=== PATIENT | female | born 1980 | race Caucasian/White ===

== ENCOUNTER → 2017-01-26 | Outpatient (CLI) | payer BC ==
[~2017-01-26] MED LIST: GADOBUTROL 15 MMOL/15 ML (GADAVIST) VIAL IV ONE; LEVO1TAB PO; MTF500T PO; OMEP40CA36 PO; SPRN25T PO
--- NOTE | 2017-01-26 12:20 | Diagnostic Imaging Report ---
EXAMINATION: Multiplanar multisequence MRI of the brain and the pituitary performed with and without intravenous contrast. INDICATION: History of pituitary adenoma. Severe headache. The patient has had episodes of lip, tongue, and right hand numbness two weeks ago. CONTRAST: 7 mL of Gadavist is administered intravenously. COMPARISON: 01/15/2016. FINDINGS: There is no diffusion restriction to suggest an acute infarct or other diffusion abnormality. A minimal nonspecific 3 mm T2 hyperintense lesion in the subcortical white matter along the right frontal lesion, axial image 17 is seen. This is a nonspecific finding and could relate to tiny focus of gliosis from an old insult. When correlated with the previous exam it appears to be present although it is slightly more prominent than the current study. Otherwise, the brain parenchyma demonstrates no significant olivera or white matter signal abnormality. No hydrocephalus. No extra-axial fluid collection is seen. The internal auditory canals and inner ear structures appear grossly unremarkable. Thin section images through the pituitary gland demonstrate normal size of the sella turcica with no evidence of a pituitary macroadenoma. The dynamic and dedicated coronal postcontrast images demonstrate hypointense lesions measuring up to 5 mm in the right and left sides of the pituitary gland. They appear slightly more conspicuous compared to the prior exam. The difference is very minimal however. The pituitary stalk is in the midline and is normal in thickness. The posterior pituitary bright spot appears normal. No hypothalamic or pineal region mass. IMPRESSION: There is suggestion of pituitary microadenomas measuring 5 mm each, in the right and the left sides of the pituitary gland. No macroadenoma is seen. There is no definite change when compared to 01/15/2016 study. Dictated by: Dictated on workstation # [id number]
--- NOTE | 2017-01-26 13:26 | Diagnostic Imaging Report ---
PROCEDURE: MR angiography of the brain without the use of contrast. TECHNIQUE: 3D ghbh-cp-iymgcl non contrast enhanced MR angiography of the head was performed. A source data was reformatted into rotating MIP projections. INDICATION: Severe headache. History of pituitary tumor. Episode of lip, tongue and right hand numbness. FINDINGS: There is codominance of the vertebral arteries. The basilar artery is normal. Its most distal aspect is essentially a continuation into the left posterior cerebral artery. The right [employer] has a origin with a prominent right PCOM and a hypoplastic P1 segment. In the anterior circulation, the carotid arteries are patent. There is suggestion of mild focal stenosis at the origin of the left MCA. There is also a signal drop out seen along the mid right LANCE. When correlated with axial [id number]-qumknq images this does not have a correlating lesion and is favored to be an artifact. Otherwise, the LANCE arteries and the ACOM appear patent. The right MCA is also patent. IMPRESSION: No evidence of occlusion, high-grade stenosis or aneurysm. Dictated by: Dictated on workstation # [id number]
== END ==
LOC: RAD 07:55
PROVIDERS: ATTEND Nurse Practitioner Family
DX: R51 Headache (principal); E23.7 Disorder of pituitary gland, unspecified
CPT/HCPCS: 70544; 70553

== ENCOUNTER → 2017-07-08 | Outpatient (CLI) | payer BC ==
[~2017-07-08] MED LIST changes: -GADOBUTROL 15 MMOL/15 ML (GADAVIST) VIAL IV ONE
[2017-07-08 11:14] LABS: BASOPHILS % (AUTO) 0 % (0-10); EOSINOPHILS # (AUTO) 0.2 10^3/uL (0.0-0.3); EOSINOPHILS % (AUTO) 1 % (0-10); LYMPHOCYTES # (AUTO) 2.7 X 10^3 (1.0-4.0); LYMPHOCYTES % (AUTO) 22 % (12-44); MEAN CORPUSCULAR HEMOGLOBIN 28 PG (25-34); MEAN CORPUSCULAR HGB CONC 35 G/DL (32-36); MEAN CORPUSCULAR VOLUME 81 FL (80-99); MEAN PLATELET VOLUME 8.9 FL (7.4-10.4); MONOCYTES # (AUTO) 0.7 X 10^3 (0.0-1.0); MONOCYTES % (AUTO) 6 % (0-12); NEUTROPHILS # (AUTO) 8.6 X 10^3 (1.8-7.8); NEUTROPHILS % (AUTO) 71 % (42-75); PLATELET COUNT 359 10^3/uL (130-400); RED BLOOD COUNT 5.05 10^6/uL (4.35-5.85); RED CELL DISTRIBUTION WIDTH 13.9 % (10.0-14.5); WHITE BLOOD COUNT 12.2 10^3/uL (4.3-11.0)
--- NOTE | 2017-07-08 11:28 | Diagnostic Imaging Report ---
PROCEDURE: CT abdomen and pelvis without contrast. TECHNIQUE: Multiple contiguous axial images were obtained through the abdomen and pelvis without the use of intravenous contrast. INDICATION: Abdominal pain. FINDINGS: The lung bases appear clear. The liver, gallbladder, spleen, pancreas, and adrenal glands appear unremarkable for an unenhanced exam. The kidneys demonstrate no hydronephrosis. No urinary tract stones. The abdominal aorta is normal in caliber. No periaortic significantly enlarged lymph nodes are seen. There are scattered diverticuli seen. No diverticulitis. The appendix appears normal. No significant free fluid or fluid collection in the abdomen or pelvis is seen. There is mild diastasis of the recti in the superior umbilical region. The uterus and and adnexa appear grossly unremarkable. The osseous structures demonstrate mild degenerative changes in the SI joints. IMPRESSION: 1. No urinary tract stones. 2. Diverticulosis. No diverticulitis. The report was faxed to the office of VIRIDIANA Diaz, by JAYJAY@11:30 AM. Dictated by: Dictated on workstation # [id number]
[2017-07-08 11:35] LABS: ALANINE AMINOTRANSFERASE 13 U/L (0-55); ALBUMIN 4.1 GM/DL (3.2-4.5); AMYLASE 85 U/L (25-125); ANION GAP 10 MMOL/L (5-14); ASPARTATE AMINO TRANSFERASE 14 U/L (5-34); BILIRUBIN,TOTAL 0.4 MG/DL (0.1-1.0); BLOOD UREA NITROGEN 8 MG/DL (7-18); BUN/CREATININE RATIO 11; CALCIUM 9.6 MG/DL (8.5-10.1); CARBON DIOXIDE 25 MMOL/L (21-32); CHLORIDE 107 MMOL/L (98-107); CREATININE SERUM 0.75 MG/DL (0.60-1.30); GFR ESTIMATED > 60; GLUCOSE 89 MG/DL (70-105); LIPASE 16 U/L (8-78); POTASSIUM 4.1 MMOL/L (3.6-5.0); SODIUM 142 MMOL/L (135-145)
[2017-07-08 11:46] LABS: ERYTHROCYTE SEDIMENTATION RATE 10 MM/HR (0-20)
== END ==
LOC: RAD 10:32
PROVIDERS: ATTEND Nurse Practitioner Family
DX: K57.90 Diverticulosis of intestine, part unspecified, without perforation or abscess without bleeding (principal)
CPT/HCPCS: 36415; 74176; 80053; 82150; 83690; 85025; 85652

== ENCOUNTER 2017-07-16 14:49 | Outpatient (CLI) | payer BC ==
[~2017-07-16] VITALS: Ht 152.4 cm; Wt 67.6 kg
[2017-07-16] MEDS ORDERED: METF-760 PO (15:21)
[2017-07-16] MEDS ORDERED: SPIR100T2 PO (15:21)
[2017-07-16] MEDS ORDERED: OMEP40CA36 PO (15:22)
[2017-07-16] MEDS ORDERED: DULA1.5P2 SQ (15:22)
[2017-07-16] MEDS ORDERED: LEVO1TAB PO (15:22)
[2017-07-17] MEDS ORDERED: METO10TA3 PO (11:03)
== END 2017-07-16 15:22 ==
LOC: PREOP 14:49
PROVIDERS: ATTEND Internal Medicine
DX: Z01.818 Encounter for other preprocedural examination (principal); Z12.11 Encounter for screening for malignant neoplasm of colon; K62.5 Hemorrhage of anus and rectum; R11.2 Nausea with vomiting, unspecified

== ENCOUNTER 2017-07-17 08:30 | Day surgery (SDC) | payer BC ==
--- NOTE | 2017-07-16 18:37 | HISTORY AND PHYSICAL ---
DATE OF SERVICE: PANENDOSCOPY HISTORY AND PHYSICAL DATE OF ADMISSION: 07/17/2017. HISTORY OF PRESENT ILLNESS: The patient is a 36-year-old white female referred for panendoscopy by Nargis Rogers. She reports since May she has had intermittent periumbilical and lower quadrant abdominal cramping, will be some improvement with passage of stool. Previous to this, she had not had a past history of IBS sounding symptoms and had not had any associated blood up until last week on Thursday when she had three bowel movements, predominantly dark red blood with clots, also associated with cramping. She denied any associated chills or fever. Separate from this for the past year and a half or 2, she does note early satiety, feels that she fills up quickly and especially if overeating will have nausea and vomiting. She was started on Trulicity in 09/2014 and her symptoms predated this. According to her, she has been given Trulicity for insulin resistance in addition to metformin, also to aid in weight loss. Her weight had been stable up until the last month when she notes that she has lost 10 pounds without trying. She underwent CT scanning of the abdomen on 07/08, which revealed scattered diverticula seen in the colon, but without evidence for diverticulitis. No other CT abdomen and pelvis findings were noted. She had no evidence for urinary tract stone. This was a noncontrast study for stone search. She reports one other EGD evaluation per Dr. Ovalle over 5 years ago, at which time she had some esophagitis in addition to hiatal hernia. She has been on omeprazole since. PAST SURGICAL HISTORY: She had left knee arthroscopic procedure several years ago. Reports no other past surgery. PAST MEDICAL HISTORY: Report insulin resistance, reflux. MEDICATIONS ON ADMISSION: Include omeprazole 20 mg daily, spironolactone 100 mg daily, metformin ER 500 mg daily, Trulicity 1.5 mg subcu weekly and Loestrin 1 daily. The patient did finish 1-week course of metronidazole, but reports no improvement in any of her abdominal symptoms, she just finished this yesterday. FAMILY HISTORY: Family history of colon polyps in her mother, but no known history of colon cancer. Both her mother and grandmother have also had problems with diverticulitis. SOCIAL HISTORY: She reports no smoking or drinking history and is employed. PHYSICAL EXAMINATION: GENERAL: Reveals a pleasant, mildly anxious white female, who does not appear to be in acute distress. SKIN: There is no evidence for pallor on skin evaluation. VITAL SIGNS: Blood pressure 120/82 with a heart rate of 72 and regular. Weight is 149.4 pounds. The patient is roughly 5 feet tall. HEENT: Oral cavity reveals a Mallampati class I configuration. Pharynx is without erythema or exudate. NECK: Reveals no JVD, adenopathy or bruits. CHEST: Clear. CARDIOVASCULAR: Reveals a regular rate and rhythm without murmur, S3 or S4. ABDOMEN: Soft, supple without distention. No mass or organomegaly is noted. There is some right mid quadrant discomfort to palpation without rebound or guarding. Bowel sounds positive, albeit somewhat hypoactive at the time of auscultation. EXTREMITIES: Reveal no cyanosis, clubbing or edema. ASSESSMENT AND PLAN: The patient is set up for diagnostic panendoscopy for weight loss, nausea, vomiting, diarrhea and recent onset of bright red blood per rectum. Further recommendation will be pending endoscopic evaluation. May have to consider discontinuing Trulicity as symptoms do suggest some delayed gastric emptying in regards to her early satiety with nausea and vomiting. Pending endoscopic findings may have to consider HIDA scan with CCK, considering CT findings did not reveal evidence for significant gallstones. I thank you for the referral of this pleasant lady. Prep instructions with Suprep kit were given and questions were answered. In today's evaluation, prep instructions and review of her past medical record 45 minutes care time spent by myself with another 15 minutes of staff care time. Job ID: [id number] DocumentID: [id number] Dictated Date: 07/16/2017 17:06:35 Shipwright Helper Date: 07/16/2017 18:36:40 Dictated By: PAO AZEVEDO MD
[~2017-07-17] VITALS: Ht 152.4 cm; Wt 67.6 kg
[~2017-07-17 08:30] MED LIST changes: +DULA1.5P2 SQ; +METF-760 PO; +SPIR100T2 PO
[2017-07-17 08:35] VITALS: BP 126/91
[2017-07-17] MEDS ORDERED: 1/2 NS IV SOLUTION 1,000 ML IV ONE ×2 (08:54→11:05)
[2017-07-17] MEDS ORDERED: 1/2 NS IV SOLUTION 1,000 ML IV STA (09:06)
[2017-07-17] MEDS ORDERED: HURRICAINE EXT TUBE (BENZOCAINE) XX PRN (09:15)
[2017-07-17] MEDS ORDERED: LIDOCAINE JELLY 2% (XYLOCAINE) 5 ML TUBE MM PRN (09:15)
[2017-07-17] MEDS ORDERED: fentaNYL INJECTION 100 MCG/2 ML AMP ONE ×2 (09:18→09:19)
[2017-07-17] MEDS ORDERED: LIDOCAINE JELLY 2% (XYLOCAINE) 5 ML TUBE ONE (09:18)
--- NOTE | 2017-07-17 09:18 | Pre-Op Note & Conscious Sedat ---
Pre-Operative Progress Note H&P Reviewed The H&P was reviewed, patient examined and no changes noted. Date H&P Reviewed: Jul 17, 2017 Time H&P Reviewed: 09:15 Conscious Sedation Pre-Proced ASA Class: 2 Airway Mallampati Classification: (mechoopda appropriate class) I. II. III, IV Lungs Heart ASA score ASA 1: a normal healthy patient ASA 2: a patient with a mild systemic disease (mid diabetes, controlled hypertension, obesity ASA 3: a patient with a severe systemic disease that limits activity (angina , COPD, prior Myocardial infarction) ASA 4: a patient with an incapacitating disease that is a constant threat to life (CHF, renal failure) ASA 5: a moribund patient not expected to survive 24 hrs. (ruptured aneurysm) ASA 6: a declared brain patient whose organs are being harvested. For emergent operations, add the letter E after the classification Grade 1 Sedation Plan: Analgesia, Amnesia, Plan communicated to team members, Discussed options with patient/fam, Discussed risks with patient/fam Note The patient is an appropriate candidate to undergo the planned procedure, sedation, and anesthesia. The patient immediately re-assessed prior to indication. PAO AZEVEDO MD Jul 17, 2017 09:18
[2017-07-17] MEDS ORDERED: HURRICAINE EXT TUBE (BENZOCAINE) ONE (09:19)
[2017-07-17] MEDS ORDERED: MIDAZOLAM 2 MG/2 ML (VERSED) VIAL ONE ×7 (09:19→10:14)
[2017-07-17] MEDS: MIDAZOLAM 2 MG/2 ML (VERSED) VIAL IVP PRN ×7 (09:35→10:15)
[2017-07-17] MEDS: fentaNYL INJECTION 100 MCG/2 ML AMP IVP PRN ×4 (09:36→10:08)
[2017-07-17] MEDS ORDERED: ONDANSETRON 4 MG/2 ML (SDV) Z0FRAN ONE (10:14)
[2017-07-17 10:40] VITALS: BP 115/84
[2017-07-17] MEDS ORDERED: METO10TA3 PO (11:03)
[2017-07-17 11:10] VITALS: BP 118/84
[2017-07-17 12:00] VITALS: BP 118/84
[2017-07-17] MEDS ORDERED: 1/2 NS IV SOLUTION 1,000 ML IV SCH (16:15)
--- NOTE | 2017-07-17 21:19 | OPERATIVE REPORT ---
DATE OF SERVICE: 07/17/2017 PANENDOSCOPY SUMMARY INDICATION FOR THE PROCEDURE: Panendoscopy was performed for bright red blood per rectum, abdominal pain, nausea and vomiting and early satiety. DESCRIPTION OF PROCEDURE: The patient was placed in the left lateral decubitus position. Prior to undergoing colonoscopy, digital rectal evaluation was performed. Anal sphincter tone was normal and the perianal reflex was intact. Digital evaluation revealed findings compatible with an anterior rectocele with no stool pocketing. No abnormalities were noted on digital inspection of the anal canal or distal rectal vault. The colonoscope was then inserted into the rectum under direct visualization, advanced to the cecum. The cecum was identified by identification of the ileocecal valve and cecal strap. Terminal ileum was intubated and distal 5 cm of terminal ileum were inspected as well. The patient tolerated the colonoscopy relatively well, but did require more than the average amounts of fentanyl and Versed for sedation and anxiety. FINDINGS: There was no evidence for internal or external hemorrhoids and no anal fissure formation was noted. The rectum was unremarkable. Several small sigmoid diverticula were present with mild haustral hypertrophy, no evidence for diverticulitis was noted. The descending colon, splenic flexure, transverse colon, hepatic flexure, ascending colon and cecum were unremarkable as were the distal 5 cm of terminal ileum. A biopsy was obtained from the rectum and submitted for evaluation for microscopic colitis. ASSESSMENT: Mild diverticular disease confined to the sigmoid colon was present without evidence for diverticulitis. This was an otherwise normal colonoscopy to the cecum and distal terminal ileum. We then proceeded with EGD evaluation. The endoscope was inserted in the oral cavity and under direct visualization, the esophagus was intubated. The scope was passed down the esophagus through the stomach and second portion of duodenum. Careful inspection was made as the endoscope was withdrawn. The patient did have significantly aggravated gag reflex requiring significantly more than average amount of sedation to accomplish the procedure. The endoscope was inserted into the oral cavity and under direct visualization, esophagus was intubated. Endoscope was passed down the esophagus through stomach and second portion of duodenum. Careful inspection was made as the endoscope was withdrawn. FINDINGS: The proximal, mid and distal esophagus were unremarkable. There was a very small sliding hiatal hernia present without evidence for erosive esophagitis. A biopsy was obtained from the Z-line and submitted for histopathology. There was no evidence for Evans's change or erosive esophagitis. The cardia of the stomach was unremarkable. Several small gastric polyps were noted confined to the fundus, predominantly along the greater curvature, compatible with fundal polyps. The largest one was biopsied, cauterized and submitted for histopathology. There was a little more than average amount of fluid without food present on evaluation, suggesting the possibility of some degree of gastroparesis. The antrum, the pylorus, the pyloric channel, the duodenal bulb and second portion of the duodenum were unremarkable. Villous pattern was normal, not consistent with underlying celiac disease. ASSESSMENT AND PLAN: Small sliding hiatal hernia is present without evidence for erosive esophagitis. There was more than average amount of fluid present in the stomach without food or blood, suggesting the possibility of gastroparesis. I did have to give the patient metoclopramide, which she tolerated well for her to tolerate her prep. She stated that she had not felt this well in sometime. I did take the liberty of calling out 10 mg of metoclopramide to be taken [id number] before meals, #90. She was advised to obtain further refills through your office if deemed to be on ongoing benefit. I did have her hold Trulicity for now due to its effects on delayed gastric emptying. She is extremely anxious and we discussed the likelihood that anxiety was likely having significant impact on her GI symptoms as well. She was asked to discuss further therapy, be it cognitive behavioral versus medication. I thank you for the referral of this pleasant lady, who was reassured by today's findings. Sincerely, Job ID: [id number] DocumentID: [id number] Dictated Date: 07/17/2017 12:36:08 Handbag Frames Inspector Date: 07/17/2017 20:26:44 Dictated By: PAO AZEVEDO MD [facility]
== END 2017-07-17 12:00 | disposition home or self-care (01) ==
LOC: ENDO 08:30
PROVIDERS: ATTEND Internal Medicine
DX: K62.5 Hemorrhage of anus and rectum (principal); K57.30 Diverticulosis of large intestine without perforation or abscess without bleeding; K31.7 Polyp of stomach and duodenum; K21.9 Gastro-esophageal reflux disease without esophagitis; K44.9 Diaphragmatic hernia without obstruction or gangrene; F41.9 Anxiety disorder, unspecified; E88.81 Metabolic syndrome and other insulin resistance; Z79.4 Long term (current) use of insulin; Z79.899 Other long term (current) drug therapy; Z83.71 Family history of colonic polyps
CPT/HCPCS: 84703

== ENCOUNTER → 2018-05-18 | Outpatient (CLI) | payer BC ==
[~2018-05-18] MED LIST changes: +METO10TA3 PO; -SPIR100T2 PO; +SPIR100T4 PO
--- NOTE | 2018-05-18 11:42 | Diagnostic Imaging Report ---
PROCEDURE: US Gallbladder. TECHNIQUE: Multiple real-time grayscale images were obtained over the right upper quadrant in various projections. INDICATION: Right upper quadrant pain. There are no prior ultrasound examinations available for comparison. FINDINGS: The CT abdomen/pelvis exam of 07/08/2017 failed to show any abnormality of the liver, gallbladder, pancreas or right kidney. On this study, there is still no evidence for cholelithiasis or acute cholecystitis. The common duct is not dilated. The liver does not appear to be enlarged. There is no focal mass involving the liver and the biliary tree is not abnormally distended. The right kidney is unremarkable. The pancreas and proximal aorta were obscured by bowel gas. IMPRESSION: 1. There is no evidence for an acute abnormality of the visualized right upper quadrant. 2. If clinical concern regarding an underlying abnormality of the gallbladder persists and further imaging is desired, then a nuclear medicine hepatobiliary scan would be recommended. Dictated by: Dictated on workstation # [id number]
== END ==
LOC: RAD 07:51
PROVIDERS: ATTEND Nurse Practitioner Family
DX: R10.11 Right upper quadrant pain (principal)
CPT/HCPCS: 76705

== ENCOUNTER → 2021-04-01 | Outpatient (CLI) | payer BC ==
[~2021-04-01] MED LIST changes: +GADOBUTROL 7.5 MMOL/7.5 ML (GADAVIST) VIAL IV ONE; -METF-760 PO; +METF-845 PO; -METO10TA3 PO; +MTC10T PO; +OMEP40CA6 PO
--- NOTE | 2021-04-01 16:24 | Diagnostic Imaging Report ---
CLINICAL INDICATION: Patient with pituitary microadenoma. Recheck. EXAM: MRI of the brain and pituitary using pituitary protocol performed without and with 7 mL of Gadavist IV gadolinium. Sequences include sagittal T1, axial flair, axial T1, axial DWI, axial ADC map, coronal T1 thin, coronal T1 fat sat thin, sagittal T1 thin, coronal T2 fat-sat thin, axial T1 post contrast whole brain, axial gradient echo, coronal T1 fat-sat post IV contrast whole brain, sagittal T1 post IV contrast whole brain, axial T1 post IV gadolinium thin, coronal T1 post IV gadolinium thin, and sagittal T1 post gadolinium thin. COMPARISON: MRI of the brain/pituitary dated 01/26/2017. FINDINGS: The previously seen hypoenhancing areas involving the right and left sides of the pituitary gland is not visualized on this exam. The dynamic post contrast phase of this exam shows only postcontrast imaging of the pituitary with the early phases not imaged likely a timing issue. The appearance and configuration of the pituitary gland is otherwise stable. Infundibulum is midline. Cavernous carotid arteries are patent. There is no masslike encroachment upon the optic nerves. Pituitary gland measures 5 mm in greatest craniocaudal dimension. The remainder of this exam is stable. The brain parenchyma is stable with no acute abnormality. The brain parenchymal volume appears appropriate for patient's age. There is no abnormal IV contrast enhancement. There is no hydrocephalus, brain herniation or midline shift. The [place] vascular structures show no gross abnormality as visualized. There is minimal mucosal thickening involving the left maxillary sinus. Mastoid air cells are clear. The extra cranial soft tissues, skull, and orbits are unremarkable. IMPRESSION: 1: Limited exam due to timing of pituitary imaging with dynamic post contrast phase bolus. The hypoenhancing lesions involving the right and left sides of the pituitary gland are not visualized on this exam which may be obscured due to dynamic post contrast timing issue. Unable to determine if these lesions have resolved. Repeat dynamic contrast phase would help better evaluate. 2: The remainder of this exam shows no significant interval change compared to the prior study of comparison. Dictated by: Dictated on workstation # [id number]
--- NOTE | 2021-04-01 18:39 | Diagnostic Imaging Report ---
PROCEDURE: US Thyroid. TECHNIQUE: Multiple real-time grayscale images were obtained of the thyroid in various projections. INDICATION: Follow-up thyroid nodules. COMPARISON: 01/15/2016. FINDINGS: The right thyroid lobe measures 3.8 x 1.2 x 1.4 cm in size. Echogenicity and vascularity appear normal. There are small hypoechoic lesions in the inferior right thyroid without calcifications. The largest measures up to 5 mm. No other nodules are seen. The isthmus measures 2 mm in thickness. The left thyroid lobe measures 4.2 x 1.1 x 1.1 cm in size. Echogenicity and vascularity appear normal. There is a small hypoechoic nodule measuring 3 mm in size. No other nodules are seen. IMPRESSION: 1. Very small hypoechoic nodules in the thyroid bilaterally. No further follow-up is indicated based on TI-RADS criteria. Dictated by: Dictated on workstation # [id number]
== END ==
LOC: RAD 14:00
PROVIDERS: ATTEND Nurse Practitioner Family
DX: D35.2 Benign neoplasm of pituitary gland (principal); E04.2 Nontoxic multinodular goiter
CPT/HCPCS: 70553; 76536